=== PATIENT | female | born 1935 | race Caucasian/White ===

== ENCOUNTER → 2017-02-06 | Outpatient (CLI) | payer MEDICARE, OTHER | END | disposition home or self-care (01) | LOC: GMAB 16:41 | PROVIDERS: ATTEND Family Medicine | DX: I10 Essential (primary) hypertension (principal) ==

== ENCOUNTER → 2018-06-26 | Outpatient (CLI) | payer MEDICARE, OTHER | LOC: GMAE 11:22 | PROVIDERS: ATTEND Family Medicine | DX: I10 Essential (primary) hypertension (principal) ==

== ENCOUNTER → 2019-08-01 | Outpatient (CLI) | payer MEDICARE, OTHER ==
--- NOTE | 2019-08-04 11:04 | MRI ---
EXAM DESCRIPTION: Brain w/o Contrast: MRI. CLINICAL HISTORY: DEMENTIA COMPARISON: CT scan of the head January 2014. TECHNIQUE: Multiplanar, high-field MRI unit, multiple diffusion sequences, multiple conventional sequences without contrast. FINDINGS: Bilateral hyperintense confluent FLAIR and T2-weighted signal in the periventricular white matter frontal parietal and occipital lobes extending to the centrum semiovale bilaterally. Scattered bilateral focal lesions similar signal in the subcortical white matter.. No hemorrhage, no cerebral edema, no mass-effect. No diffusion restriction. Normal signal in the bilateral basal ganglia. Normal signal in the brainstem and cerebellar hemispheres. No hemorrhage, no parenchymal edema, no mass-effect. Concordance of the diffusion and non-diffusion sequences with no diffusion restriction. Cortical sulci, ventricles, and other CSF spaces, and the subdural spaces are normally configured for patients age. No effacement or displacement. No midline shift. No extra-axial hemorrhage. Normal flow signal void in the major vessels of the muscogee Cisneros, and the venous sinuses. IACs are symmetric bilaterally. Normal signal in the bilateral mastoid air cells. No mass effect in the bilateral cerebellopontine angles. Pituitary gland occupies most of the sella. Base of the cerebellar tonsils is at the level of the foramen magnum. Minimal mucoperiosteal thickening in the. The bony calvarium is intact. IMPRESSION: 1. Abnormal white matter signal changes predominantly periventricular white matter, centrum semiovale, and subcortical white matter relatively symmetric bilaterally most likely related to aging and/or cerebral microvascular disease. Not associated with hemorrhage, cerebral edema, mass effect, or diffusion restriction. 2. Cortical and central atrophy is age-appropriate with no diffusion restriction. Normal diffusion elsewhere in the brain. 3. Mild chronic paranasal sinusitis. Electronically signed by: Moisés Meyers MD 08/04/2019 11:03 AM [facility]
== END ==
LOC: MRI 07:00
PROVIDERS: ATTEND Family Medicine
DX: F03.90 Unspecified dementia, unspecified severity, without behavioral disturbance, psychotic disturbance, mood disturbance, and anxiety (principal); R90.82 White matter disease, unspecified; G31.9 Degenerative disease of nervous system, unspecified; J32.9 Chronic sinusitis, unspecified; I10 Essential (primary) hypertension; R53.83 Other fatigue